=== PATIENT | male | born 1955 | race Caucasian/White ===

== ENCOUNTER → 2020-08-13 | Outpatient (CLI) | payer MEDICARE, BC ==
--- NOTE | 2020-08-13 14:05 | REPPI ---
INDICATION: EELVATED PSA. COMPARISON: None. TECHNIQUE: Transrectal prostate sonography. FINDINGS: Trans rectal prostate sonography demonstrates unremarkable seminal vesicles. Prostate gland is heterogeneous, with calcifications and cystic changes noted. Glandular dimensions are measured at 3.8 x 2.7 x 4.1 cm with a calculated glandular volume of 21.7 ml. Transrectal sonographic guidance is provided to Dr. Silva who performed trans rectal ultrasound guided needle biopsy procedure. IMPRESSION: Transrectal prostate sonography as above. Sonographic guidance is provided. <Electronically signed by Hudson Patrick > 08/13/20 0008
== END ==
LOC: M SMT PRO 09:15
PROVIDERS: ATTEND Urology
DX: C61 Malignant neoplasm of prostate (principal)
CPT/HCPCS: 55700; 76872; 76942; G0416

== ENCOUNTER → 2020-09-13 | Outpatient (CLI) | payer MEDICARE ==
--- NOTE | 2020-09-13 13:19 | RADONC.CN ---
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 He has elected to pursue RT and has recently received 6 month ADT injection from Dr. Silva. Diagnosis/Treatment History Oncologic History Followed for elevated PSA/family history of prostate cancer 08/13/20 TRUS biopsy [place] 4+3=7 in 2 cores [place] 3+3=6 in 2 cores [facility] PSA 2014 0.9 Lapse in screening... 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 Feels well. No significant urinary symptoms whatsoever. Has regular BM daily. No history of rectal bleeding. He has no problem achieving/maintaining erection, however, not sexually active and this is not a priority for him. Appetite good weight stable. Has two older brothers with prostate cancer, both alive, one s/p RP, the other had LDR implant. Patient states he prefers RT to surgery due to side effect profiles. Past Medical History: None Past Surgical History: None Family History: Prostate cancer 2 older brothers as above Social History: Non-smoker Does not drink Review of Systems Constitutional: Denies: Chills, Fever, Night Sweats Eyes: Denies: Pain, Vision change HEENT: Denies: Head Aches, Dysphagia, Sore Throat Skin: Denies: Rash, Lesions, Bruising Pulmonary: Denies: Dyspnea, Cough Cardiovascular: Denies: Chest Pain, Palpitations, Edema Gastrointestinal: Denies: Nausea, Vomiting, Abdominal Pain, Diarrhea Genitourinary: Denies: Dysuria, Frequency, Incontinence Hematologic: Denies: Bruising, Petecchia, Enlarged Lymph Nodes Musculoskeletal: Denies: Neck pain, Back pain Neurological: Denies: Weakness, Numbness, Incoordination Psych: Reports: Mood Normal; Denies: Memory Issues, Thoughts of Self Harm Vital Signs Ht 72" Wt 226 lbs BMI 30 T 98 P 78 RR 18 BP 141/89 O2 99% Pain 0 Fatigue 0 General Exam: Positive: Alert, Cooperative, No Acute Distress Eye Exam: Positive: PERRLA, EOMI ENT EXAM: Positive: Mucous membr. moist/pink, Pharynx Normal Neck Exam: Negative: Thyromegaly, Lymphadenopathy Chest Exam: Positive: Normal air movement; Negative: Rales, Rhonchi, Wheezing Heart Exam: Positive: Rate Normal, Regular Rhythm Abdomen Exam: Positive: Soft; Negative: Tenderness, Mass Male Exam: Positive: Normal Genital Exam, Normal Prostate, Normal Sphincter Tone; Negative: Lesions Extremity Exam: Negative: Edema, Tenderness Skin Exam: Positive: Nl turgor and temperature; Negative: Rash Neuro Exam: Positive: Normal Gait, Normal Speech, Cranial Nerves 3-12 NL Psych Exam: Positive: Mental status NL, Mood NL, Memory Intact Diagnostic and Laboratory Diagnostic Review Radiologic images, relevant labs and pathology reports were personally reviewed and discussed with Mr. Najera. Assessment and Plan Impression Mr. 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 He has elected to p ursue RT and has recently received 6 month ADT injection from Dr. Silva. Stage Unfavorable intermediate risk prostate cancer [id number] [place] 4+3=7 (4/12 cores+) PSA 5.6 stage IIC Performance Status ECOG 0 Plan We had an extensive discussion with Mr. Najera regarding the diagnosis at hand and available therapeutic options. He is entirely well without any significant symptoms or PMH. He has a normal sized gland on imaging and exam. He has elected to pursue EBRT and has already received a 6 month ADT injection from Dr. Silva. I discussed various radiation options with him including moderate hypofractionation 70 Gy in 28 fractions versus SBRT 36.25 Gy in 5 fractions. Both have excellent ocean transportation intermediary survival and toxicity outcomes. He would like to proceed with SBRT. I will not treat his LN as he is intermediate risk and his Rosibel table calculation is <5% risk of LN involvement. I discussed fiducial marker and SpaceOAR placement with him as well, SpaceOAR is appropriate given his intermediate risk disease and excellent performance status, I reviewed that it is associated with significant reduction in risk of acute and late GI toxicity as well as improved QOL metrics for urinary sexual and GI domains. He would like to proceed with SpaceOAR. We discussed the logistics of receiving radiation therapy in detail including the need for a 1-time planning session. This would occur 1-2 weeks after SpaceOAR placement. We reviewed the toxicities of treatment including fatigue, self-limited irritative voiding symptoms, diarrhea, late rectal bleeding, and latent ED. After discussing the risks, benefits and alternatives to radiation therapy, Mr. Najera was amenable to pursuing radiotherapy. All questions were answered to the patient's satisfaction. We instructed the patient that if there were any questions,concerns or changes in clinical status in the interim to contact us. Recommendations SBRT to prostate and SV 36.25 Gy in 5 fractions 6 month ADT given by Dr. Silva SpaceOAR/fiducial marker placement Simulation 1-2 weeks post placement Billing Statement Total time of [35] minutes was spent preparing for the visit [3], obtaining HPI [2], examining the patient [2], reviewing diagnostic tests [4], discussing management options [15], coordinating care [1], and writing this note [8]. SHALONDA TOLEDO MD Sep 13, 2020 11:58
== END ==
LOC: M ONCR 09:35
PROVIDERS: ATTEND General Practice
DX: C61 Malignant neoplasm of prostate (principal)

== ENCOUNTER → 2020-10-10 | Outpatient (CLI) | payer MEDICARE ==
[~2020-10-10] MED LIST: CIPR-249 PO; LIDOCAINE 2% MDV 20ML VIAL XX ONE; LIDOCAINE VISCOUS 2% SOLN 15ML UDC XX ONE; LORA1TAB4 PO
--- NOTE | 2020-10-10 12:52 | ROOPDOC ---
[facility] Report Of Operation Report of Operation [facility] Radiation Oncology SpaceOAR & fiducial marker procedure note Name: Sid Najera RosaB: 53 Procedure diagnosis: C61.0 Prostate cancer Procedure date/time: 10/10/2020 1200 Physician: Rober Toledo MD Implant(s): Fiducials (2 seeds per needle): Qfix [id number] Lot# [id number] Exp 12/17/2023 Qty 2 SpaceOAR: [id number] Lot# [id number] Exp 05/31/22 Qty 1 Description of procedure: Informed consent for placement of SpaceOAR and fiducial marker seeds (4) was obtained pre-procedure. A timeout was completed. The patient was placed in the high lithotomy position and a rectal exam with 2% viscous lidocaine was completed. The rectal vault was empty of stool. A chlorhexidine prep of the perineal skin was completed. The trans-rectal ultrasound probe was introduced, the prostate and the rectal bulb were well visualized. 2% lidocaine was infiltrated in the skin and soft tissues of the perineum via a 23 Ga spinal needle under ultrasound guidance. 10cc of local was used. Patient tolerated the block well. Next, fiducial marker seeds were placed via pre-loaded 18 Ga needles under ultrasound guidance. 2 seeds were placed in the left anterior base and apex, respectively. 2 seeds were placed at the right posterior base and apex, respectively. A hydro-dissection of the space between the prostate and rectum was conducted by locating Denonvilliers fascia and injecting 10 cc of isotonic saline through an 18 Ga needle into the potential space there to develop a plane for SpaceOAR implant. Once the hydro-dissection was complete, the needle was withdrawn to mid-gland and the implant needle was then checked in the sagittal and transverse planes for optimal position and once verified, the SpaceOAR implant was placed. The implant was noted to have excellent positioning from base to near-apex. The needle was withdrawn and the ultrasound probe was removed from the rectum. Post procedure vital signs were WNL. The patient tolerated the procedure well without significant discomfort. EBL: <1cc Disposition: Simulation for radiation therapy will occur in the next 1-2 weeks The patient will complete antibiotic prophylaxis this evening ROBER TOLEDO MD Oct 10, 2020 12:52
== END ==
LOC: M ONCR 10:52
PROVIDERS: ATTEND General Practice
DX: C61 Malignant neoplasm of prostate (principal)
CPT/HCPCS: 55874; 55876; A4648; C1889

== ENCOUNTER → 2020-11-15 | Outpatient (RCR) | payer MEDICARE ==
[~2020-11-15] MED LIST changes: -LIDOCAINE 2% MDV 20ML VIAL XX ONE; -LIDOCAINE VISCOUS 2% SOLN 15ML UDC XX ONE
== END ==
LOC: M ONCR 10-24 10:27
PROVIDERS: ATTEND General Practice
DX: C61 Malignant neoplasm of prostate (principal)

== ENCOUNTER → 2021-02-12 | Outpatient (CLI) | payer MEDICARE ==
--- NOTE | 2021-02-12 10:04 | RADONC ---
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 He underwent SBRT 36.25 Gy in 5 fractions completed 11/15/20 with concomitant 6 month ADT injection from Dr. Silva. Diagnosis/Treatment History Oncologic History Followed for elevated PSA/family history of prostate cancer 08/13/20 TRUS biopsy [place] 4+3=7 in 2 cores [place] 3+3=6 in 2 cores [place] 22cc PSA 2014 0.9 Lapse in screening... 05/30/21 5.58 01/06/21 2.07 SBRT 36.25 Gy in 5 fractions 11/11/20-11/15/20 45 mg Eligard concomitant with RT Interval History Sid reports he feels well. Had a pulse of urinary frequency and constipation 2 weeks after completion of RT that resolved over the ensuing 3 weeks. Currently voiding well with no frequency or dysuria. He can do a 4 hour charter without needing to use the head. He has no ED at this time. He has no BRBPR or diarrhea. Appetite good, weight and energy levels stable. Current Therapy Surveillance Stage Unfavorable intermediate risk prostate cancer [id number] [place] 4+3=7 (4/12 cores+) PSA 5.6 stage IIC Social History: Non-smoker Does not drink Allergies / Meds Allergies: Coded Allergies: No Known Allergies (Unverified , 10/10/20) Home Meds Active Scripts Lorazepam (Lorazepam) 1 Mg Tablet, 1 TAB PO DAILY for anxiety MDD 1 Tablet(s) for 1 Day, #1 TAB Take 1 tab 1 hour before your procedure Prov:SHALONDA TOLEDO MD 10/07/20 Ciprofloxacin HCl (Cipro) 500 Mg Tablet, 1 TAB PO BID for 1 Day, #2 TAB Take 1 tab in the morning before procedure. Take 1 tab in the evening after procedure Prov:SHALONDA TOLEDO MD 10/07/20 Review of Systems Review of Systems Constitutional: Denies: Fatigue, Weight Loss Eyes: Denies: Pain HEENT: Denies: Head Aches Skin: Denies: Rash Pulmonary: Denies: Dyspnea Cardiovascular: Denies: Chest Pain Gastrointestinal: Denies: Abdominal Pain, Diarrhea, Hematochezia Genitourinary: Denies: Dysuria, Frequency, Incontinence, Retention Musculoskeletal: Denies: Back pain Neurological: Denies: Weakness, Numbness Psych: Reports: Mood Normal Physical Examination Vital Signs Wt 226 lbs T 96.4 P 70 RR 18 BP 136/86 O2 97% Pain 0 Fatigue 2 General Exam: Positive: Alert, Cooperative, No Acute Distress Eye Exam: Positive: PERRLA, EOMI ENT EXAM: Positive: Atraumatic Chest Exam: Positive: Clear to auscultation Heart Exam: Positive: Rate Normal Abdomen Exam: Positive: Soft Extremity Exam: Negative: Edema Skin Exam: Positive: Nl turgor and temperature Neuro Exam: Positive: Normal Gait, Normal Speech Psych Exam: Positive: Mental status NL Diagnostic and Laboratory Diagnostic Review Radiologic images, relevant labs and pathology reports were personally reviewed and discussed with Mr. Najera. Assessment and Plan Impression Assessment Mr. Najera is a 65 year old male with a strong family history of prostate cancer (2 older brothers) and recently diagnosed unfavorable intermediate risk prostate cancer cT1c [place] 4+3=7 (4/12 cores+) PSA 5.58. He underwent SBRT 36.25 Gy in 5 fractions completed 11/15/20 with concomitant 6 month ADT injection from Dr. Silva. He is doing well, he has no residual acute side effects from treatment. His PSA has responded appropriately. Testosterone was not checked per patient, this may recover in the coming weeks/month or two. I have no concerns at this time, I note he is seeing Dr. Silva in July 2021. Sid and I discussed splitting follow up with Dr. Silva, I think in his case biannual PSA checks would be appropriate given his excellent initial response, thus I will see Sid again in 1 year. Performance Status ECOG 0 Plan Follow up in 1 year with PSA Seeing Dr. Silva in July 2021, will attempt to split follow up with him Mr. Najera was encouraged to call with questions or concerns in the interim period. Billing Statement Total time of [23] minutes was spent preparing for the visit [1], obtaining HPI [5], examining the patient [2], reviewing diagnostic tests [1], discussing management options [6], coordinating care [1], and writing this note [7]. SHALONDA TOLEDO MD Feb 12, 2021 10:04
== END ==
LOC: M ONCR 08:46
PROVIDERS: ATTEND General Practice
DX: C61 Malignant neoplasm of prostate (principal); Z80.42 Family history of malignant neoplasm of prostate; Z92.3 Personal history of irradiation

== ENCOUNTER → 2023-09-01 | Outpatient (CLI) | payer MEDICARE ==
[~2023-09-01] MED LIST changes: +LORA1TAB23 PO; -LORA1TAB4 PO
== END ==
LOC: M CARPUL 09:12
PROVIDERS: ATTEND Family Medicine
DX: I34.0 Nonrheumatic mitral (valve) insufficiency (principal)